=== PATIENT | male | born 1995 | race African-American/Black ===

== ENCOUNTER 2022-03-04 22:19 | Emergency (ER) | payer OTHER ==
[2022-03-04 22:28] VITALS: BP 104/78; PULSE 110; TEMP 99.3; BMI 42.7
[2022-03-04] MEDS ORDERED: IBUPROFEN 600 MG TABLET (FP) PO ONE ×2 (23:14→23:22)
== END 2022-03-04 23:33 | disposition home or self-care (01) ==
LOC: JERFT 22:19
DX: J06.9 Acute upper respiratory infection, unspecified (principal)
CPT/HCPCS: 99283-25